=== PATIENT | male | born 1975 | race Caucasian/White ===

== ENCOUNTER 2019-04-07 13:51 | Emergency (ER) | payer OTHER ==
[~2019-04-07] VITALS: Ht 175.3 cm; Wt 68.0 kg
[2019-04-07 14:15] VITALS: BP 109/74
== END 2019-04-07 16:00 | disposition home or self-care (01) ==
LOC: ER 14:04
DX: S61.112A Laceration without foreign body of left thumb with damage to nail, initial encounter (principal); W25.XXXA Contact with sharp glass, initial encounter; Y93.89 Activity, other specified; Y92.89 Other specified places as the place of occurrence of the external cause; Y99.0 Civilian activity done for income or pay
CPT/HCPCS: 12001